=== PATIENT | male | born 1950 | race Caucasian/White ===

== ENCOUNTER 2021-01-03 14:42 | Emergency (ER) | payer MEDICARE, BC ==
[2021-01-03 15:21] VITALS: BP 130/74; PULSE 70
--- NOTE | 2021-01-03 15:45 | EDM.PDOC ---
ED HPI GENERAL MEDICAL PROBLEM - General Chief Complaint: Lower Extremity Injury/Pain Stated Complaint: poss infection in leg Time Seen by Provider: 01/03/21 15:28 Source of Information: Reports: Patient, RN Notes Reviewed History Limitations: Reports: No Limitations - History of Present Illness INITIAL COMMENTS - FREE TEXT/NARRATIVE: Patient is a 70-year-old male presenting to the emergency department with concerns of possible infection to the right lower extremity. Patient reports that since last week, he has had some redness to his right lower extremity. He has a small mostly healed open area which she states has been there for quite some time. He had similar symptoms in his lower extremity while black and was placed on Keflex and he states "it cleared up very nicely ". He reports pain in his posterior calf with palpation or when trying to drive a car. 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 He reports he has an appointment scheduled for a consult to get his "veins cleaned out "and is lower extremities. Denies any fever, chills, nausea, or vomiting. - Related Data Allergies Allergy/AdvReac Type Severity Reaction Status Date / Time No Known Allergies Allergy Verified 01/03/21 15:22 Home Meds: Home Meds Aspirin [Adult Low Dose Aspirin EC] 81 mg PO DAILY 03/06/16 [History] Digoxin 250 mcg PO DAILY 03/06/16 [History] Famotidine [Pepcid] 20 mg PO BID 03/06/16 [History] Insulin Glargine,Hum.Rec.Anlog [Lantus Solostar] 100 unit SQ BID 03/06/16 [History] Lisinopril 40 mg PO DAILY 03/06/16 [History] Multivitamin [Multivitamins] 1 each PO DAILY 03/06/16 [History] Pravastatin Sodium [Pravastatin (Pravachol)] 40 mg PO DAILY 03/06/16 [History] Warfarin Sodium [Coumadin] 7.5 mg PO DAILY 03/06/16 [History] amLODIPine [Norvasc] 5 mg PO DAILY 03/06/16 [History] atenoloL [Atenolol] 100 mg PO BID 03/06/16 [History] hydroCHLOROthiazide [Hydrochlorothiazide] 50 mg PO DAILY 03/06/16 [History] cephALEXin [Cephalexin] 500 mg PO QID #28 tablet 01/03/21 [Rx] Past Medical History Neurological History: Reports: Neuropathy, Diabetic Endocrine/Metabolic History: Reports: Diabetes, Type II - Past Surgical History Cardiovascular Surgical History: Reports: Valve Replacement Social & Family History - Tobacco Use Tobacco Use Status *Q: Never Tobacco User - Recreational Drug Use Recreational Drug Use: No Review of Systems - Review of Systems Review Of Systems: Comprehensive ROS is negative, except as noted in HPI. ED EXAM, GENERAL - Physical Exam Exam: See Below General Appearance: Alert, WD/WN, No Apparent Distress Respiratory/Chest: No Respiratory Distress, Lungs Clear, Normal Breath Sounds, No Accessory Muscle Use, Chest Non-Tender Cardiovascular: Normal Peripheral Pulses, Regular Rate, Rhythm, No Gallop, No JVD, No Murmur, No Rub Extremities: Other (Stasis skin discoloration to bilateral lower extremities. Slight redness to right lower extremity from the mid deras to ankle. They mostly healed 1 cm lesion to the anterior aspect of the leg. No drainage or obvious warmth. 1+ edema bilaterally) Neurological: Alert, Oriented, CN II-XII Intact, Normal Cognition, Normal Gait, Normal Reflexes, No Motor/Sensory Deficits Psychiatric: Normal Affect, Normal Mood Course - Vital Signs Last Recorded V/S: Last Vital Signs Temp 97.4 F 01/03/21 15:19 Pulse 70 01/03/21 15:19 Resp 18 01/03/21 15:19 BP 130/74 01/03/21 15:19 Pulse Ox 94 L 01/03/21 15:19 - Orders/Labs/Meds Labs: Laboratory Tests 01/03/21 01/03/21 01/03/21 Range/Units 16:20 16:20 16:20 WBC 11.61 H (4.23-9.07) K/mm3 RBC 5.19 (4.63-6.08) M/mm3 Hgb 15.3 (13.7-17.5) gm/dl Hct 45.7 (40.1-51.0) % MCV 88.1 (79.0-92.2) fl MCH 29.5 (25.7-32.2) pg MCHC 33.5 (32.2-35.5) g/dl RDW Std Deviation 45.0 H (35.1-43.9) fL Plt Count 161 L (163-337) K/mm3 MPV 10.0 (9.4-12.3) fl Neut % (Auto) 50.4 (34.0-67.9) % Lymph % (Auto) 34.2 (21.8-53.1) % [place] % (Auto) 13.1 H (5.3-12.2) % Eos % (Auto) 1.4 (0.8-7.0) Baso % (Auto) 0.5 (0.1-1.2) % Neut # (Auto) 5.85 H (1.78-5.38) K/mm3 Lymph # (Auto) 3.97 H (1.32-3.57) K/mm3 [place] # (Auto) 1.52 H (0.30-0.82) K/mm3 Eos # (Auto) 0.16 (0.04-0.54) K/mm3 Baso # (Auto) 0.06 (0.01-0.08) K/mm3 Manual Slide Review Abnormal smear Sodium 142 (136-145) mEq/L Potassium 3.8 (3.5-5.1) mEq/L Chloride 102 (98-107) mEq/L Carbon Dioxide 33 H (21-32) mEq/L Anion Gap 10.8 (5-15) BUN 44 H (7-18) mg/dL Creatinine 1.7 H (0.7-1.3) mg/dL Est Cr Clr Drug Dosing 44.39 mL/min Estimated GFR (MDRD) 40 (>60) mL/min BUN/Creatinine Ratio 25.9 H (14-18) Glucose 162 H (70-99) mg/dL Lactic Acid 1.3 (0.4-2.0) mmol/L Calcium 8.8 (8.5-10.1) mg/dL Total Bilirubin 0.7 (0.2-1.0) mg/dL AST 13 L (15-37) U/L ALT 20 (16-63) U/L Alkaline Phosphatase 68 (46-116) U/L C-Reactive Protein 3.1 H* (<1.0) mg/dL Total Protein 7.0 (6.4-8.2) g/dl Albumin 3.4 (3.4-5.0) g/dl Globulin 3.6 gm/dL Albumin/Globulin Ratio 0.9 L (1-2) - Re-Assessments/Exams Free Text/Narrative Re-Assessment/Exam: Patient is a 70-year-old male presenting to the emergency department with concerns of possible infection to his right lower extremity. States for the last few days, he has been having increased redness to the area as well as pain. He has had cellulitis infection of the left lower extremity in the past and states this feels similar. On exam, this appears and changes associated with venous insufficiency to his bilateral lower extremities. There is some faint redness to the right lower extremity but no warmth.. Calf is tender but there is no redness or warmth. I have ordered blood work and a venous Doppler ultraso und of the right lower extremity. 01/03/21 16:57 Hematology significant for WBC slightly elevated 11.61, CO2 33, BUN 44, creatinine 1.7, CRP 3.1. Venous Doppler ultrasound of the right lower extremity shows no evidence of DVT. Patient will be started on cephalexin for treatment of cellulitis. This will be sent to [place] pharmacy. Recommend follow-up in the clinic with his primary at next available visit. Discussed return precautions. Discharge instructions as documented. Departure - Departure Time of Disposition: 16:58 Disposition: Home, Self-Care 01 Condition: Good Clinical Impression: Cellulitis and abscess of right lower extremity - Discharge Information *PRESCRIPTION DRUG MONITORING PROGRAM REVIEWED*: No *COPY OF PRESCRIPTION DRUG MONITORING REPORT IN PATIENT KWASI: No Prescriptions: cephALEXin [Cephalexin] 500 mg PO QID #28 tablet Instructions: Cellulitis, Adult Referrals: PCP,Not In Area [Ordering Only Provider] - Forms: ED Department Discharge Additional Instructions: You were seen in the emergency department today for concerns of possible infection to the skin of your right lower extremity. Recommend complete blood work and an ultrasound of your right lower extremity. Results of the blood work did show a slightly elevated white blood cells and inflammatory marker new. There could be some mild infection there. Ultrasound showed no evidence of a blood clot in your leg. You been started on cephalexin for treatment of cellulitis. If symptoms should worsen, please do not hesitate to return to the emergency department for reevaluation. Sepsis Event Note (ED) - Evaluation Sepsis Screening Result: No Definite Risk
--- NOTE | 2021-01-04 08:29 | US ---
Right lower extremity deep venous ultrasound: Duplex and color Doppler evaluation was obtained of the right common femoral, proximal greater saphenous, superficial femoral, popliteal, posterior tibial and peroneal veins. Left common femoral vein was also evaluated. Comparison: No prior lower extremity ultrasound is available. Findings: Peroneal vein was not well seen for compressibility. Other veins show normal phasic flow, augmentation and compression. Impression: 1. No findings of deep venous thrombosis within the right lower extremity or within the left common femoral vein. Diagnostic code #1 I agree with preliminary report from [facility], finalized on 01/03/21, 5:29 PM CDT, code 1
== END 2021-01-03 17:00 | disposition home or self-care (01) ==
LOC: JD.ED 14:42
DX: L03.115 Cellulitis of right lower limb (principal); L02.415 Cutaneous abscess of right lower limb; R60.0 Localized edema; E11.40 Type 2 diabetes mellitus with diabetic neuropathy, unspecified; Z79.82 Long term (current) use of aspirin; Z79.01 Long term (current) use of anticoagulants; Z79.4 Long term (current) use of insulin; Z79.899 Other long term (current) drug therapy
CPT/HCPCS: 36415; 80053; 83605; 85025; 86140; 87040; 93971-26-RT; 93971-RT; 99283; 99284-25

== ENCOUNTER 2021-07-12 09:45 | Day surgery (SDC) | payer MEDICARE, BC ==
[~2021-07-12 09:45] MED LIST: Lactated Ringers 1,000 ML IV SCH; Lidocaine 1%/Sod Bicarbonate in NS 8.4% 1 ML Syringe IDERM PRN; Sodium Chloride 0.9% 10 ML Syringe FLUSH SCH
[2021-07-12] MEDS ORDERED: Lidocaine 1% 2 ML ONE (12:54)
[2021-07-12] MEDS ORDERED: Propofol 200 MG/20 ML SDV ONE ×2 (12:54→13:34)
[2021-07-12 14:35] VITALS: BP 132/70; PULSE 72
== END 2021-07-12 14:45 | disposition home or self-care (01) ==
LOC: JD.SDS 09:45
PROVIDERS: ATTEND Surgery
DX: D12.0 Benign neoplasm of cecum (principal); D12.2 Benign neoplasm of ascending colon; D12.3 Benign neoplasm of transverse colon; K57.30 Diverticulosis of large intestine without perforation or abscess without bleeding; K64.8 Other hemorrhoids; I48.91 Unspecified atrial fibrillation; E11.9 Type 2 diabetes mellitus without complications; I10 Essential (primary) hypertension; E78.00 Pure hypercholesterolemia, unspecified; E66.9 Obesity, unspecified; U09.9 Post COVID-19 condition, unspecified; Z79.899 Other long term (current) drug therapy; Z79.82 Long term (current) use of aspirin; Z79.01 Long term (current) use of anticoagulants; Z79.84 Long term (current) use of oral hypoglycemic drugs; Z98.890 Other specified postprocedural states
CPT/HCPCS: 45380; 45385; J2704; J7120; 00811

== ENCOUNTER 2021-07-23 09:11 | Inpatient (IN) | payer MEDICARE, BC ==
[2021-07-23] MEDS ORDERED: Sodium Chloride 0.9% 10 ML Syringe FLUSH PRN (09:52)
[2021-07-23] MEDS ORDERED: Sodium Chloride 0.9% 1,000 ML IV SCH ×2 (10:00→17:45)
[2021-07-23] MEDS ORDERED: Diltiazem 120 MG Cap.CD PO ONE (13:51)
[2021-07-23] MEDS ORDERED: Atenolol 50 MG Tab PO ONE (14:12)
[2021-07-23] MEDS ORDERED: Ondansetron 4 MG/2 ML SDV IVPUSH ONE (14:18)
[2021-07-23] MEDS: Sodium Chloride 0.9% 1,000 ML IV SCH ×2 (14:42→20:49)
[2021-07-23] MEDS ORDERED: Ondansetron 4 MG/2 ML SDV IVPUSH PRN (17:03)
[2021-07-23] MEDS ORDERED: Ondansetron 4 MG/2 ML SDV IV PRN (17:20)
[2021-07-23] MEDS ORDERED: Acetaminophen 325 MG Tab PO PRN (17:20)
[2021-07-23] MEDS ORDERED: Glucose Gel 15 GM in 37.5 GM Tube PO ONE (17:20)
[2021-07-23] MEDS ORDERED: Acetaminophen/HYDROcodone 325-5 MG Tab PO PRN (17:29)
[2021-07-23] MEDS ORDERED: Lactated Ringers 1,000 ML IV SCH (17:30)
[2021-07-23] MEDS ORDERED: Insulin Aspart Protamine/Insulin Aspart 70-30 100 Units/ML 10 ML Vial SUBCUT SCH ×2 (17:30→17:45)
[2021-07-23] MEDS: Insulin Lispro 100 Unit/ML 3 ML KwikPen SUBCUT SCH (20:47)
[2021-07-23] MEDS: Gabapentin 300 MG Cap PO SCH (20:47)
[2021-07-24] MEDS: Insulin Lispro 100 Unit/ML 3 ML KwikPen SUBCUT SCH ×5 (08:37→21:12)
[2021-07-24] MEDS: Gabapentin 300 MG Cap PO SCH ×2 (08:42→21:11)
[2021-07-24] MEDS: Atenolol 50 MG Tab PO SCH (08:42)
[2021-07-24] MEDS: Diltiazem 240 MG Cap.ER PO SCH (08:42)
[2021-07-24] MEDS: Sodium Chloride 0.9% 1,000 ML IV SCH ×2 (08:53→19:14)
[2021-07-25] MEDS: Gabapentin 300 MG Cap PO SCH ×2 (08:19→20:26)
[2021-07-25] MEDS: Diltiazem 240 MG Cap.ER PO SCH (08:20)
[2021-07-25] MEDS: Atenolol 50 MG Tab PO SCH (08:20)
[2021-07-25] MEDS: Insulin Lispro 100 Unit/ML 3 ML KwikPen SUBCUT SCH ×5 (08:22→21:29)
[2021-07-25] MEDS: Sodium Chloride 0.9% 1,000 ML IV SCH (09:23)
[2021-07-25] MEDS ORDERED: Sodium Chloride 0.9% 1,000 ML IV SCH (09:45)
[2021-07-25] MEDS ORDERED: Insulin Lispro 100 Unit/ML 3 ML KwikPen SUBCUT SCH ×2 (11:30→17:30)
[2021-07-25] MEDS ORDERED: Non-Formulary Medication 1 Each (Metformin 500 MG Tab.Er) PO SCH (11:45)
[2021-07-25 13:28] LABS: HEMOGLOBIN A1C 7.5 %
[2021-07-25] MEDS: Insulin Glargine,Hum.Rec.Anlog 100 UNIT/ML 3 ML Pen SUBCUT SCH (20:27)
[2021-07-26] MEDS ORDERED: Furosemide 40 MG Tab PO PRN (07:25)
[2021-07-26] MEDS: Atenolol 50 MG Tab PO SCH (08:37)
[2021-07-26] MEDS: Gabapentin 300 MG Cap PO SCH ×2 (08:37→20:48)
[2021-07-26] MEDS: Diltiazem 240 MG Cap.ER PO SCH (08:39)
[2021-07-26] MEDS: Furosemide 40 MG Tab PO SCH (08:39)
[2021-07-26] MEDS: Insulin Glargine,Hum.Rec.Anlog 100 UNIT/ML 3 ML Pen SUBCUT SCH ×2 (08:40→20:48)
[2021-07-26] MEDS: Insulin Lispro 100 Unit/ML 3 ML KwikPen SUBCUT SCH ×8 (08:41→23:13)
[2021-07-26] MEDS: Sodium Chloride 0.9% 250 ML IV SCH ×2 (10:16→17:47)
[2021-07-26] MEDS ORDERED: Sodium Chloride 0.9% 250 ML IV SCH (16:45)
[2021-07-26] MEDS ORDERED: Albuterol/Ipratropium 3.0-0.5 MG/3 ML Neb Soln NEB PRN (21:52)
[2021-07-27] MEDS: Gabapentin 300 MG Cap PO SCH (08:10)
[2021-07-27] MEDS: Furosemide 40 MG Tab PO SCH (08:10)
[2021-07-27] MEDS: Atenolol 50 MG Tab PO SCH (08:11)
[2021-07-27] MEDS: Diltiazem 240 MG Cap.ER PO SCH (08:12)
[2021-07-27] MEDS: Insulin Glargine,Hum.Rec.Anlog 100 UNIT/ML 3 ML Pen SUBCUT SCH (08:14)
[2021-07-27] MEDS: Insulin Lispro 100 Unit/ML 3 ML KwikPen SUBCUT SCH ×2 (08:15)
[2021-07-27 08:16] VITALS: BP 131/75; PULSE 94
== END 2021-07-27 10:45 | disposition home or self-care (01) | DRG 813 ==
LOC: JD.ED 09:11 → JD.MS 14:44 → OBSVTOIN 21:54
PROVIDERS: ADMIT Emergency Medicine; ATTEND Surgery
PROC: 30233N1 Transfusion of Nonautologous Red Blood Cells into Peripheral Vein, Percutaneous Approach (ICD-10-PCS; principal; 2021-07-24)
DX: K92.1 Melena (principal); H91.93 Unspecified hearing loss, bilateral; H54.7 Unspecified visual loss; D68.32 Hemorrhagic disorder due to extrinsic circulating anticoagulants; E78.00 Pure hypercholesterolemia, unspecified; K91.840 Postprocedural hemorrhage of a digestive system organ or structure following a digestive system procedure; I48.91 Unspecified atrial fibrillation; G47.30 Sleep apnea, unspecified; M19.90 Unspecified osteoarthritis, unspecified site; G89.29 Other chronic pain; M54.9 Dorsalgia, unspecified; E11.40 Type 2 diabetes mellitus with diabetic neuropathy, unspecified; E78.5 Hyperlipidemia, unspecified; I10 Essential (primary) hypertension; G47.33 Obstructive sleep apnea (adult) (pediatric); E11.9 Type 2 diabetes mellitus without complications; Z98.890 Other specified postprocedural states; E66.9 Obesity, unspecified; E86.1 Hypovolemia; Z96.643 Presence of artificial hip joint, bilateral; Z20.822 Contact with and (suspected) exposure to COVID-19; T45.515A Adverse effect of anticoagulants, initial encounter; Z96.653 Presence of artificial knee joint, bilateral; N28.9 Disorder of kidney and ureter, unspecified; Z79.899 Other long term (current) drug therapy; Z95.2 Presence of prosthetic heart valve; Z68.33 Body mass index [BMI] 33.0-33.9, adult; Z87.19 Personal history of other diseases of the digestive system; Z79.4 Long term (current) use of insulin; Z97.3 Presence of spectacles and contact lenses; Z97.4 Presence of external hearing-aid; Z79.01 Long term (current) use of anticoagulants; Y83.8 Other surgical procedures as the cause of abnormal reaction of the patient, or of later complication, without mention of misadventure at the time of the procedure; Y92.89 Other specified places as the place of occurrence of the external cause
CPT/HCPCS: 36415; 36430; 74177; 74177-26; 80048; 80053; 82947; 83036; 83690; 84145; 85014; 85018; 85025; 85610; 85730; 86850; 86900; 86901; 86922; 94640; 96374; 99285; 99285-25; A9270-GY; J1815; J1815-GY; J2405; J7030; J7050; J7620-GY; P9016; U0002

== ENCOUNTER 2021-11-01 14:58 | Emergency (ER) | payer MEDICARE, BC ==
[2021-11-01 15:08] VITALS: BP 151/75; PULSE 110
[2021-11-01] MEDS ORDERED: Sodium Chloride 0.9% 10 ML Syringe FLUSH PRN (15:14)
== END 2021-11-01 17:10 | disposition home or self-care (01) ==
LOC: JD.ED 14:58
DX: M79.621 Pain in right upper arm (principal); I10 Essential (primary) hypertension; E11.9 Type 2 diabetes mellitus without complications; Z79.899 Other long term (current) drug therapy; Z79.4 Long term (current) use of insulin
CPT/HCPCS: 36415; 71045; 80053; 83735; 84443; 84484; 85025; 86140; 93005; 93971; 99284; J3490

== ENCOUNTER 2021-11-02 08:33 | Emergency (ER) | payer MEDICARE, BC ==
[2021-11-02] MEDS ORDERED: Sodium Chloride 0.9% 10 ML Syringe FLUSH PRN ×2 (08:35→09:25)
[2021-11-02 08:47] VITALS: BP 155/87; PULSE 103
[2021-11-02] MEDS ORDERED: Iopamidol 755 Mg/ML 100 ML Bottle IVPUSH ONE (09:25)
[2021-11-02] MEDS ORDERED: Sodium Chloride 0.9% 100 ML IV SCH (09:30)
[2021-11-02] MEDS ORDERED: HYDROmorphone 0.5 MG/0.5 ML Syringe IVPUSH ONE (10:27)
== END 2021-11-02 12:04 ==
LOC: JD.ED 08:33
DX: I63.511 Cerebral infarction due to unspecified occlusion or stenosis of right middle cerebral artery (principal); I48.91 Unspecified atrial fibrillation; E78.00 Pure hypercholesterolemia, unspecified; E11.40 Type 2 diabetes mellitus with diabetic neuropathy, unspecified; E66.9 Obesity, unspecified; Z68.38 Body mass index [BMI] 38.0-38.9, adult; Z79.4 Long term (current) use of insulin; Z79.01 Long term (current) use of anticoagulants
CPT/HCPCS: 36415; 70450; 70496; 70498; 80053; 84484; 85025; 85610; 85730; 93005; 96374; 99285; J1170; J3490; Q9967